=== PATIENT | male | born 1960 | race Caucasian/White ===

== ENCOUNTER 2018-11-10 13:25 | Day surgery (SDC) | payer BC ==
[2018-11-10] MEDS ORDERED: PROPOFOL 40 ML (14:52)
[2018-11-10] MEDS ORDERED: LIDOCAINE 100 MG SYRINGE (14:52)
[2018-11-10] MEDS ORDERED: OXYCODONE/ACETAMINOPHEN (5/325) TAB PO ×2 (15:30)
[2018-11-10] MEDS ORDERED: ONDANSETRON 4 MG INJ IV (15:30)
[2018-11-10] MEDS ORDERED: EPHEDrine SULFATE 50 MG/5 ML SYG IV (15:30)
[2018-11-10] MEDS ORDERED: FENTAnyl 50 MCG/ML VIAL IV ×3 (15:30)
[2018-11-10] MEDS ORDERED: hydrALAzine 20 MG INJ IV (15:30)
[2018-11-10] MEDS ORDERED: MIDAZOLAM 1 MG/ML 2 ML INJ IV (15:30)
[2018-11-10] MEDS ORDERED: HYDROmorphONE 1 MG/5 ML IV SYRINGE IV ×3 (15:30)
[2018-11-10] MEDS ORDERED: ALBUTEROL 0.083% (NEB) 2.5 MG/3 ML AMP HHN (15:30)
[2018-11-10] MEDS ORDERED: TRIMETHOBENZAMIDE 100 MG/ML VIAL IM (15:30)
[2018-11-10] MEDS ORDERED: LABETALOL HCL 20MG INJ IV (15:30)
[2018-11-10] MEDS ORDERED: IPRATROPIUM (NEB) 0.5 MG/2.5 ML AMP HHN (15:30)
[2018-11-10] MEDS ORDERED: DIPHENHYDRAMINE 50 MG INJ IV (15:30)
[2018-11-10] MEDS ORDERED: MEPERIDINE 25 MG INJ IV (15:30)
== END 2018-11-10 17:22 | disposition home or self-care (01) ==
LOC: GIL 13:25
DX: Z12.11 Encounter for screening for malignant neoplasm of colon (principal); D12.4 Benign neoplasm of descending colon; K64.8 Other hemorrhoids
CPT/HCPCS: 45380; 88305